=== PATIENT | male | born 1985 | race Caucasian/White ===

== ENCOUNTER 2017-04-07 03:59 | Emergency (ER) | payer BC, OTHER ==
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
[2017-04-07 04:07] VITALS: BP 144/96; PULSE 100; TEMP 97.9; BMI 27.2
[2017-04-07] MEDS ORDERED: HIV POST EXPOSURE PROPHYLAXIS KIT PO ONE (05:08)
[2017-04-07 06:11] LABS: BASOPHIL 0.3 % (0-2.0); EOSINOPHIL 0.9 % (0-4.5); MCH 30.9 pg (25.7-33.7); MCHC 34.6 g/dl (32.0-35.9); MEAN CELL VOLUME 89.4 fl (80-96); MEAN PLT VOLUME 9.9 fl (7.5-11.1); NEUTROPHILS 53.7 % (42.8-82.8); PLATELET COUNT 164 K/MM3 (134-434); RDW 12.4 % (11.9-15.9); WHITE BLOOD COUNT 5.6 K/mm3 (4.0-10.0)
[2017-04-07 06:33] LABS: ALBUMIN 4.5 g/dl (3.4-5.0); ALK PHOS 102 U/L (45-117); ANION GAP 12 (8-16); BILIRUBIN,TOTAL 0.5 mg/dL (0.2-1.0); CALCIUM 9.1 mg/dL (8.5-10.1); CO2 28 mmol/L (21-32); COCKROFT - GAULT 109.72; CREATININE 1.2 mg/dL (0.7-1.3); GLUCOSE,RANDOM 94 mg/dL (74-106); SGOT/AST 34 U/L (15-37); SGPT/ALT 35 U/L (12-78); TOT PROT 7.8 g/dl (6.4-8.2)
[2017-04-07 06:46] LABS: HIV 1 & 2 AB NEGATIVE; HIV 1 AGp24 NEGATIVE
[2017-04-07] MEDS ORDERED: RALTEGRAVIR POTASSIUM 400 MG TAB PO SCH (10:00)
[2017-04-07] MEDS ORDERED: EMTRICITABINE 200MG/TENOFOVIR 300MG PO SCH (10:00)
[2017-04-08 06:07] LABS: HEP B SURFACE AB Reactive (.)
== END 2017-04-07 05:24 | disposition home or self-care (01) ==
LOC: FER 03:59
DX: Z77.21 Contact with and (suspected) exposure to potentially hazardous body fluids (principal)
CPT/HCPCS: 36415; 80053; 85025; 86704; 86706; 86803; 87340; 87389; 99283-25